=== PATIENT | female | born 2000 | race African-American/Black ===

== ENCOUNTER 2021-10-25 11:18 | Inpatient (IN) | payer MEDICAID ==
[2021-10-25] MEDS ORDERED: LORazepam 1 MG TAB PO PRN (11:28)
[2021-10-25] MEDS ORDERED: MAG HYDROX/AL HYDROX/SIMETH 30 ML CUP PO PRN (11:28)
[2021-10-25] MEDS ORDERED: ACETAMINOPHEN TAB 325 MG TAB PO PRN (11:28)
[2021-10-25] MEDS ORDERED: MAGNESIUM HYDROXIDE 2,400 MG/10 ML CUP PO PRN (11:28)
[2021-10-25] MEDS ORDERED: HALOPERIDOL LACTATE 5 MG/ML 1 ML VIAL IM PRN (11:28)
[2021-10-25] MEDS ORDERED: LORazepam 2 MG/ML INJ IM PRN (11:31)
[2021-10-25] MEDS ORDERED: OLANZapine 5 MG TAB PO PRN (11:32)
[2021-10-25] MEDS ORDERED: OLANZapine 10 MG VIAL IM PRN (11:34)
--- NOTE | 2021-10-25 13:24 | P.MDCNMH ---
History of Present Illness H&P Date: 10/25/21 Chief Complaint: Medical management/clearance 20-year-old with a medical history of asthma, mildly overweight woman presented for evaluation by mental health unit for suicidal ideation. Medicine consulted by psychiatry service for medical management/clearance. Patient has no complaints at this time, denies fevers, chills, nausea, vomiting, chest pain, palpitations, syncope, presyncope, cough, dyspnea, abdominal pain, constipation, diarrhea, dysuria, dyschezia, numbness/weakness of extremities. Upon my evaluation, patient is afebrile, 117/60, heart rate 75, 97% on room air. No labs or images review. All Systems reviewed and pertinent positives and negatives noted in HPI, all other symptoms are negative Gen: awake, alert HEENT: normocephalic, atraumatic, good hearing acuity, moist mucous membranes Resp: good air exchange, breathing comfortably with no accessory muscle use CVS: good distal perfusion x 4, GI: soft, NTTP, ND : no SPT, no CVAT, gongora catheter not present MSK: no pitting edema, no clubbing Neuro: non-focal, moving all extremities Psych: cooperative, euthymic mood Assessment/plan: Mild intermittent asthma -Continue home albuterol inhaler Mildly overweight -Recommend lifestyle modification such as diet and exercise, follow-up with PCP Suicidal ideation and depression -Care per primary team Thank you for this consult. A member of our team is available 07/12, should any issues or concerns arise, please reach out via perfect serve Medications and Allergies Allergies Allergy/AdvReac Type Severity Reaction Status Date / Time No Known Allergies Allergy Verified 10/25/21 11:27 Physical Exam Osteopathic Statement: *. No significant issues noted on an osteopathic structural exam other than those noted in the History and Physical/Consult. Vitals: Vital Signs Temp Pulse Resp BP Pulse Ox 10/25/21 12:15 97.5 F L 75 18 117/60 97 Intake and Output 10/24/21 10/25/21 10/25/21 22:59 06:59 14:59 Other: Weight 71.5 kg Cranial Nerve Examination - Cranial Nerves Cranial Nerve II- Optic: Intact Cranial Nerve III- Oculomotor: Intact Cranial Nerve IV- Trochlear: Intact Cranial Nerve V- Trigeminal: Intact Cranial Nerve - Abducens: Intact Cranial Nerve VII- Facial: Intact Cranial Nerve VIII- Auditory: Intact Cranial Nerve IX- Glossopharyngeal: Intact Cranial Nerve X- Vagus: Intact Cranial Nerve XI- Accessory: Intact Cranial Nerve XII- Hypoglossal: Intact
[2021-10-25] MEDS: NICOTINE 14MG/24HR PATCH TRANSDERM SCH (14:32)
[2021-10-26] MEDS: NICOTINE 14MG/24HR PATCH TRANSDERM SCH (08:04)
[2021-10-26] MEDS ORDERED: NICOTINE 14MG/24HR PATCH TRANSDERM SCH (09:00)
--- NOTE | 2021-10-26 11:16 | P.HP ---
Psychiatric H&P - . H&P Date: 10/26/21 History & Physical: Allergies Allergy/AdvReac Type Severity Reaction Status Date / Time No Known Allergies Allergy Verified 10/25/21 11:27 Vital Signs Temp 97.5 F L 10/25/21 12:15 Pulse 75 10/25/21 12:15 Resp 18 10/25/21 12:15 BP 117/60 10/25/21 12:15 Pulse Ox 97 10/25/21 12:15 FiO2 Intake & Output 10/25/21 10/26/21 10/26/21 18:59 06:59 18:59 Weight 71.5 kg 70.2 kg 10/26/21 11:10 Psychiatric evaluation: This is a psychiatric assessment on Sugar Silver who is a 28-year-old - Kos[place] female who states that she was brought into the hospital against her will Patient states that she was minding her own business and that she was cooking something in the backyard but had some of her clothes off because of the heat She states that the neighbor was taking a video of her and called the police She states that now her 4 children are in a foster home and that she needs to get back home as soon as possible Patient denies that she has no history of any mental illness or treatment She denies any previous psychiatric hospitalizations She denies any history of depression and anxiety or psychosis She denies any previous suicide attempts She denies any alcohol or substance use She states that she is dependent on the state for her finances and takes care of her 4 children She denies being in trouble with the law in the past or recently Past history personal and social history Patient states that she is a [id number] mom and takes care of her 4 children Patient did not go into any specifics about her social life she currently denies any psychiatric illness or problems the past or in the recent present Mental status examination: Reveals a young female who looks much older for age Patient's speech was somewhat pressured with circumstantiality and tangentiality Patient is casually dressed and groomed Patient is very attention seeking and demanding attention Patient remained constantly intrusive during the whole interview as well as after the interview while making the rounds where she continued to interrupt and tries to get this fha underwriter's attention Thought processes are circumstantial and tangential and projective Patient remains in her denial about any issues or problems Patient's insight into her problem is poor Her formal and operational judgment are impaired Problem-solving abilities poor Patient is alert and oriented to time detention person Cognitively she appears to be intact Diagnostic impression: Adjustment disorder with mixed emotional features Rule out bipolar disorder type I Plan: The patient will be hospitalized on the unit for further evaluation and treatment Therapy will be focused on providing supportive care improving her coping abilities with a multimodal treatment Patient has also been started back on the Zyprexa 5 mg daily at bedtime as well as other when necessary medications that include lorazepam and Haldol and Zyprexa as needed Discharge planning as per milieu recommendations and social studies teacher intervention Larry Aguero M.D. 10/26/2021
[2021-10-26 17:27] LABS: Chol/HDL Ratio 3.82 Ratio; LDL Cholesterol,Calculated 100.6 mg/dL (0.0-131.0); VLDL Calculation 12.32 mg/dL (5.00-40.00)
[2021-10-27] MEDS: NICOTINE 14MG/24HR PATCH TRANSDERM SCH (08:54)
[2021-10-27] MEDS ORDERED: OLANZapine 5 MG TAB PO SCH (09:00)
--- NOTE | 2021-10-27 13:47 | P.PN ---
Progress Note - Text Progress Note Date: 10/27/21 Interval History: Patient was seen wandering the hallways and was directable and agreeable to speak with newswriter in the office. At this time, the patient is a very poor historian events leading up to this hospitalization. Despite what was written in her petition, the patient vehemently denies any wrongdoing or any issues with her behavior. When exploring any psychiatric pathology, the patient replies "no." Collateral information was obtained by the patient's father who also reports that the patient has had a significant change in her behaviors and actions over the past 4 months since giving to her child. The patient has been placing herself in compromising physicians including walking around her apartment complex naked. She refuses any medications at this time. A second clinical certificate has been filled out. Mental Status Exam: General Appearance: Patient appears to be stated age is alert, directable, and however not cooperative. Behavior: She displays elevated psychomotor activity. She is unable to sit still. Speech: Patient's speech is fluent and nonpressured. Repetitive and monotone. Mood/Affect: Mood is "I need to leave." Affect is flat. Suicidality/Homicidality: Patient denies any suicidal or homicidal ideation. Perceptions: Patient denies any visual hallucinations and denies any auditory hallucinations Though content/process: Patient appears to be grossly paranoid. Memory and concentration: AOX3, grossly intact for the purposes of this session Judgment and insight: Very poor Vital Signs Temp 97.6 F 10/27/21 06:44 Pulse 84 10/27/21 06:44 Resp 18 10/27/21 06:44 BP 123/59 10/27/21 06:44 Pulse Ox 99 10/27/21 06:44 FiO2 Intake & Output 10/26/21 10/27/21 10/27/21 18:59 06:59 18:59 Weight 70.2 kg Assessment Acute psychosis Cannabis use disorder Plan: -Patient continues to meet criteria for inpatient psychiatric admission for symptom stabilization and safety. The second clinical certificate was filled out and filed for court. -Medications: Start Abilify 10 mg by mouth daily for acute psychosis. Patient has a right to refuse medications at this time. -When necessary Ativan and Haldol for agitation/aggression. -SW on board for discharge planning. Encouraged the patient to participate in milieu.
[2021-10-28] MEDS: NICOTINE 14MG/24HR PATCH TRANSDERM SCH (07:40)
[2021-10-28] MEDS ORDERED: ARIPiprazole 10 MG TAB PO SCH (09:00)
--- NOTE | 2021-10-28 13:23 | P.PN ---
Progress Note - Text Progress Note Date: 10/28/21 Interval History: Patient was seen wandering the hallways and was directable and agreeable to speak with inspector automatic typewriter in the office. Patient is much more calm and cooperative today. She is currently reporting no suicidal or homicidal ideation, intention, and/or plan. She is not reporting any auditory or visual hallucinations. She denies any overt paranoia or other delusions. She has been in adherent with her Abilify. She is currently alert and oriented in all spheres. She does endorse some christian preoccupation however is denying any ideas of reference, loose associations, or any religiously themed delusions. She reports that she is in the hospital because her sister Carolina Silver has been very concerned about her states that she is willing to sign a release of information allowing us to speak with Caroilna Silver to address any of the family's concerns. The patient remains future and goal oriented, wishing to get better so that she may be reunited with her children. She has 4 children whom she does not have custody of. Mental Status Exam: General Appearance: Patient appears to be stated age is alert, directable, and however not cooperative. Behavior: Patient displays normal psychomotor activity today. Speech: Patient's speech is fluent and nonpressured. Mood/Affect: Mood is "Can I go home today?" Affect is blunted. Suicidality/Homicidality: Patient denies any suicidal or homicidal ideation. Perceptions: Patient denies any visual hallucinations and denies any auditory hallucinations Though content/process: Patient appears to be grossly paranoid. Memory and concentration: AOX3, grossly intact for the purposes of this session Judgment and insight: Mildly improving Vital Signs Temp 95.5 F L 10/28/21 08:36 Pulse 65 10/28/21 08:36 Resp 18 10/28/21 08:36 BP 106/65 10/28/21 08:36 Pulse Ox 99 10/27/21 06:44 FiO2 Assessment Acute psychosis Cannabis use disorder Plan: -Patient continues to meet criteria for inpatient psychiatric admission for symptom stabilization and safety. The second clinical certificate was filled out and filed for court. -Medications: Increase Abilify to 20 mg by mouth daily for acute psychosis. -When necessary Ativan and Haldol for agitation/aggression. -SW on board for discharge planning. Encouraged the patient to participate in milieu.
[2021-10-29 07:08] VITALS: BP 107/64; PULSE 104; RESP 16; TEMP 97.4
[2021-10-29] MEDS: NICOTINE 14MG/24HR PATCH TRANSDERM SCH (08:42)
--- NOTE | 2021-10-29 11:06 | P.DS ---
Providers Date of admission: 10/25/21 12:11 Expected date of discharge: 10/29/21 Attending physician: Francis Blount MD Consults: 10/25/21 11:28 Consult Physician Routine Consulting Provider: Eric Eldridge Consult Reason/Comments: medical management Do you want consulting provider notified?: Yes Primary care physician: Stated None - Discharge Diagnosis(es) (1) Acute psychosis Current Visit: Yes Status: Acute Priority: High (2) Cannabis use with psychotic disorder Current Visit: Yes Status: Chronic Priority: Medium Hospital Course: Admission HPI: Initial psychiatric evaluation was completed by Dr Aguero on 10/26/2021 who wrote: "This is a psychiatric assessment on Sugar Silver who is a 28-year-old -[place]ian female who states that she was brought into the hospital against her will Patient states that she was minding her own business and that she was cooking something in the backyard but had some of her clothes off because of the heat She states that the neighbor was taking a video of her and called the police She states that now her 4 children are in a foster home and that she needs to get back home as soon as possible Patient denies that she has no history of any mental illness or treatment She denies any previous psychiatric hospitalizations She denies any history of depression and anxiety or psychosis She denies any previous suicide attempts She denies any alcohol or substance use She states that she is dependent on the state for her finances and takes care of her 4 children She denies being in trouble with the law in the past or recently" Hospital course: Upon admission to the unit patient was initially guarded and appeared to be grossly disorganized. The patient was initially hesitant to start treatment and therefore second clinical certificate was filled out. Patient was started on both live for management of acute psychosis. Patient spoke of and her stressors and engaged in therapy both group and individual. Patient was also seen by medical team for history and physical exam. The patient responded well to the Abilify and became much more linear and logical conversation and less intrusive with staff and peers. Appropriate safety planning did occur including collateral information obtained by the patient's father as well as sister. On the day of discharge, the patient is not reporting any suicidal or homicidal ideation intent or plan. Patient reports no auditory or visual hallucinations. The patient denies any paranoia or other delusions. Patient is alert and oriented in all spheres. The patient was counseling the points medication adherence and appropriate outpatient follow-up. Furthermore, the patient does have significant history of cannabis use and was counseling great length on abstaining from all substances including alcohol and marijuana. Prior to discharge, a family meeting was arranged by social work assistant to answer any questions and ensure safety. Mental status exam: General Appearance: Patient appears to be stated age is alert, pleasant, and cooperative. Patient is in no acute distress and has fair hygiene and grooming Behavior: Patient is calmly seated without any agitated behavior. Speech: Patient's speech is fluent and nonpressured. Mood/Affect: Patient reports their mood is "much better", affect is congruent and euthymic. Suicidality/Homicidality: Patient denies having any suicidal or homicidal ideation intent or plan. Perceptions: Patient denies any auditory or visual hallucinations. Though content/process: There is no evidence of any delusional thought content and thought process is linear and goal-directed. The patient is future oriented. Memory and concentration: AOX3, grossly intact for the purposes of this session. Can spell "WORLD" backwards correctly. Judgment and insight: Improved with guarded prognosis Vital Signs Temp 97.4 F L 10/29/21 06:58 Pulse 104 H 10/29/21 06:58 Resp 16 10/29/21 06:58 BP 107/64 10/29/21 06:58 Pulse Ox 99 10/27/21 06:44 FiO2 Laboratory Results Estimated Ave Glu mg/dL 105 10/26/21 11:02 Hemoglobin A1c 5.3 % (0.0-6.0) 10/26/21 11:02 Triglycerides 61.60 mg/dL (0.00-149.00) 10/26/21 11:02 Cholesterol 153.00 mg/dL (0.00-200.00) 10/26/21 11:02 LDL Cholesterol, Calc 100.6 mg/dL (0.0-131.0) 10/26/21 11:02 VLDL Cholesterol, Calc 12.32 mg/dL (5.00-40.00) 10/26/21 11:02 HDL Cholesterol 40.10 mg/dL (40.00-60.00) 10/26/21 11:02 Cholesterol/HDL Ratio 3.82 Ratio 10/26/21 11:02 Allergies Allergy/AdvReac Type Severity Reaction Status Date / Time No Known Allergies Allergy Verified 10/25/21 11:27 Impression: Acute psychosis Cannabis use disorder Plan: -Continue with discharge today as patient has improved and stabilized psychiatrically and is not currently an imminent threat to self and/or others. Patient will remain at chronically elevated risk due to substance use and somewhat limited insight. -Continue medications: Abilify 20 mg by mouth daily for acute psychosis -Patient was counseled on the need for medication compliance and appropriate follow-up at mental health and also primary care for medical issues. Patient verbalized understanding and agreed. -Social work to arrange for and conduct family meeting to ensure safety upon discharge and answer any questions/concerns. Social work also to arrange for patients follow up appointments for psychiatric care along with follow up with primary care provider. -Patient counseled on abstaining from recreational drugs and marijuana and alcohol. Was informed/educated on the adverse effects on their physical and mental health. Patient verbally agreed and understood. -Patient was instructed to return to the hospital or seek immediate medical care if their psychiatric or medical symptoms do worsen or reoccur. -Psychoeducation and supportive therapy provided to patient. Risks and benefits of pharmacological treatment versus the risks and benefits of nontreatment weight and discussed. Informed consent discussion held. Common side effects of psychotropics discussed such as, but not limited to headache, GI disturbance, sexual dysfunction, movement disorders, sedation, and orthostatic hypotension. Life threatening and blackbox warnings of prescribed medications also discussed. Potential risks of operating a vehicle or heavy machinery discussed with patient at length. Advised on importance of compliance and a reliable and responsible manner. Patient advised to review FDA consumer labeling of all medications prior to taking. Patient verbalized understanding of potential risks, and agrees with current treatment plan. Patient advised to medically contact physician/emergency personnel if any acute changes in condition occur. Patient Condition at Discharge: Stable Plan - Discharge Summary New Discharge Prescriptions: New ARIPiprazole [Abilify] 20 mg PO DAILY 30 Days tab Discharge Medication List ARIPiprazole [Abilify] 20 mg PO DAILY 30 Days tab 10/29/21 [Rx] Follow up Appointment(s)/Referral(s): [facility] [Other] - 11/21/21 10:00 am Activity/Diet/Wound Care/Special Instructions: Activity and diet as tolerated. Avoid the use of street drugs and alcohol. Take all medications as prescribed. When you are in need of refills on your medications please contact your medical provider and/or outpatient psychiatrist to have this done. Please go to scheduled outpatient appointment for aftercare treatment. If symptoms return or become worse, call the crisis line at and/or go to the nearest emergency room for evaluation Discharge Disposition: HOME SELF-CARE
== END 2021-10-29 20:00 | disposition home or self-care (01) | DRG 897 ==
LOC: 3MHU 12:11
PROVIDERS: ADMIT Psychiatry & Neurology Psychiatry; ATTEND Psychiatry & Neurology Psychiatry
DX: F12.159 Cannabis abuse with psychotic disorder, unspecified (principal); R45.851 Suicidal ideations; Z79.899 Other long term (current) drug therapy; F43.23 Adjustment disorder with mixed anxiety and depressed mood; J45.20 Mild intermittent asthma, uncomplicated; E66.3 Overweight; Z68.27 Body mass index [BMI] 27.0-27.9, adult; Z71.3 Dietary counseling and surveillance; Z71.51 Drug abuse counseling and surveillance of drug abuser
CPT/HCPCS: 80061; 83036